=== PATIENT | male | born 1950 | race American Indian/Alaskan Native ===

== ENCOUNTER 2018-03-06 11:45 | Outpatient (CLI) | payer MEDICARE ==
[2018-03-06 12:18] LABS: Hematocrit 42.4 % (35.5-45.6); Mean Corpuscular HGB Conc 33 % (32-34); Mean Corpuscular Hemoglobin 28 pg (28-32); Mean Corpuscular Volume 85 fl (84-94); Platelet Count 181 K/mm3 (140-440); Red Cell Distribution Width 13.1 % (13.2-15.2)
[2018-03-06 12:35] LABS: Bilirubin,Urine NEG (Negative); Blood,Urine NEG (Negative); Color,Urine Yellow (Yellow); Protein,Urine <15 mg/dL mg/dL (Negative); Urobilinogen,Urine < 2.0 mg/dL (<2.0); WBC,Urine < 1.0 /HPF (0.0-6.0)
[2018-03-06 12:37] LABS: Creatinine,Urine 51.2 mg/dL (0.1-20.0)
[2018-03-06 12:40] LABS: Alanine Aminotransferase 30 units/L (7-56); Albumin 4.1 g/dL (3.9-5); BUN/Creatinine Ratio 14; Blood Urea Nitrogen 11 mg/dL (9-20); Calcium 9.2 mg/dL (8.4-10.2); Hemolysis Index 24
[2018-03-06 13:00] LABS: Microalbumin/Creatinine Ratio 23.4 ug/mg; Protein/Creatinine Ratio,Urine 0.08
[2018-03-06 13:54] LABS: Basophils % (Manual) 0 % (0.0-1.8); Platelet Estimate Cons; RBC Morphology Normal; Smudge Cells Few; Total Cells Counted 100
== END 2018-03-06 11:46 | disposition home or self-care (01) ==
LOC: LAB 11:45
PROVIDERS: ATTEND Internal Medicine Nephrology
DX: I10 Essential (primary) hypertension (principal); M54.5 Low back pain
CPT/HCPCS: 36415; 80053; 81001; 82043; 82570; 84156; 85007; 85025

== ENCOUNTER 2018-05-28 14:44 | Outpatient (CLI) | payer MEDICARE ==
[2018-05-28 15:49] LABS: Hematocrit 43.6 % (35.5-45.6); Hemoglobin 14.3 gm/dl (11.8-15.2); Mean Corpuscular HGB Conc 33 % (32-34); Mean Corpuscular Hemoglobin 28 pg (28-32); Mean Corpuscular Volume 84 fl (84-94); Platelet Count 179 K/mm3 (140-440); Red Blood Count 5.18 M/mm3 (3.65-5.03); Red Cell Distribution Width 12.9 % (13.2-15.2)
[2018-05-28 16:02] LABS: Bilirubin,Urine NEG (Negative); Blood,Urine NEG (Negative); Color,Urine Yellow (Yellow); Mucus,Urine FEW /HPF; Protein,Urine <15 mg/dL mg/dL (Negative); Urobilinogen,Urine < 2.0 mg/dL (<2.0); WBC,Urine < 1.0 /HPF (0.0-6.0)
[2018-05-28 16:03] LABS: BUN/Creatinine Ratio 12; Blood Urea Nitrogen 11 mg/dL (9-20); Calcium 9.2 mg/dL (8.4-10.2); Hemolysis Index 11
[2018-05-28 16:12] LABS: Creatinine,Urine 144.4 mg/dL (0.1-20.0); Protein/Creatinine Ratio,Urine 0.05
[2018-05-28 16:52] LABS: Basophils % (Manual) 0 % (0.0-1.8); Total Cells Counted 100
[2018-05-28 16:53] LABS: Large Platelets 1+; Platelet Estimate Consistent w Auto; RBC Morphology Normal
== END 2018-05-28 14:45 | disposition home or self-care (01) ==
LOC: EDBD 14:44 → LAB 14:44
PROVIDERS: ATTEND Internal Medicine Nephrology
DX: I12.9 Hypertensive chronic kidney disease with stage 1 through stage 4 chronic kidney disease, or unspecified chronic kidney disease (principal); N18.2 Chronic kidney disease, stage 2 (mild)
CPT/HCPCS: 36415; 80048; 81001; 82570; 84156; 85007; 85025